=== PATIENT | female | born 1945 | race African-American/Black ===

== ENCOUNTER 2016-04-20 09:36 | Outpatient (CLI) | payer MEDICARE, OTHER ==
[2016-04-20 12:33] LABS: Hemoglobin A1c 5.8 % (4.0-6.0)
== END 2016-04-20 09:37 | disposition home or self-care (01) ==
LOC: NAVSJIPCSP 09:36
PROVIDERS: ATTEND Internal Medicine
DX: E78.5 Hyperlipidemia, unspecified (principal); E11.9 Type 2 diabetes mellitus without complications; Z79.899 Other long term (current) drug therapy
CPT/HCPCS: 36415; 80061; 83036

== ENCOUNTER 2016-07-20 09:05 | Outpatient (CLI) | payer MEDICARE, OTHER ==
[2016-07-20 12:38] LABS: Hemoglobin A1c 5.8 % (4.0-6.0)
[2016-07-20 12:45] LABS: Cardiac Risk 2.2 (Less than 4.5)
[2016-07-20 17:33] LABS: Hep C IgG Ab Non-Reactive (NonReactive); Hep C Index 0.09 S/CO (0-0.79)
== END 2016-07-20 09:06 | disposition home or self-care (01) ==
LOC: NAVSJIPCSP 09:05
PROVIDERS: ATTEND Internal Medicine
DX: E11.9 Type 2 diabetes mellitus without complications (principal); Z72.89 Other problems related to lifestyle; Z79.899 Other long term (current) drug therapy
CPT/HCPCS: 36415; 80061; 83036; 86803

== ENCOUNTER 2016-08-08 14:36 | Outpatient (CLI) | payer MEDICARE, OTHER ==
--- NOTE | 2016-08-08 17:48 | RAD ---
TWO VIEWS LEFT HIP 08/08/2016 HISTORY: Left hip pain radiating down the left leg for 2 weeks. FINDINGS: There is minimal left hip osteoarthritis. No fracture or dislocation is seen. There are prominent calcifications overlying the pelvis which could be related to calcified uterine fibroids, but this c annot be further evaluated on this exam. IMPRESSION: 1. Large area of calcifications overlying the pelvis of which the exact etiology is uncertain, but t his may be related to calcified uterine fibroids. However, confirmation with CT scan examination ma y be helpful. 2. Mild left hip osteoarthritis. POS: MARQUES
== END 2016-08-08 14:37 | disposition home or self-care (01) ==
LOC: NAV RAD 14:36
PROVIDERS: ATTEND Internal Medicine
DX: M25.552 Pain in left hip (principal); M16.12 Unilateral primary osteoarthritis, left hip

== ENCOUNTER 2016-10-31 09:48 | Outpatient (CLI) | payer MEDICARE, OTHER ==
[2016-10-31 12:51] LABS: #Basophils 0.1 thou/uL (0.0-0.2); #Eosinphils 0.4 thou/uL (0.0-0.7); #Lymphocytes 2.1 thou/uL (1.20-3.40); #Monocytes 0.5 thou/uL (0.11-0.59); #Neutrophils 3.4 thou/uL (1.40-6.50); %Basophils 0.9 % (0.0-1.0); %Eosinophils 5.9 % (0.0-10.0); %Lymphocytes 32.2 % (21.0-51.0); %Monocytes 7.1 % (0.0-10.0); %Neutrophils 53.9 % (42.0-75.0); Hemoglobin 11.8 g/dL (12.0-16.0); Mean Corpuscular HGB CONC 31.9 g/dL (32.0-36.0); Mean Corpuscular Hemoglobin 28.7 pg (27.0-31.0); Mean Corpuscular Volume 90.2 fl (81.0-99.0); Mean Platelet Volume 7.2 fL (7.4-10.4); Platelet Count 298 thou/uL (130-400); RBC Distribution Width 12.5 % (11.5-14.5); Red Blood Cell (RBC) Count 4.11 mill/uL (4.20-5.40); White Blood Cell (WBC) Count 6.4 thou/uL (4.8-10.8)
[2016-10-31 13:23] LABS: ALT (SGPT) 10 U/L (8-55); AST (SGOT) 15 U/L (5-34); Albumin 3.8 g/dL (3.4-4.8); Alkaline Phosphatase 105 U/L (40-150); Anion Gap 16 mmol/L (10-20); BUN (Urea Nitrogen) 18 mg/dL (9.8-20.1); Bilirubin, Total 0.4 mg/dL (0.2-1.2); Calc. Creatinine Clearance 0 mL/min (70-130); Calcium 10.1 mg/dL (7.8-10.44); Carbon Dioxide 26 mmol/L (23-31); Cardiac Risk 2.3 (Less than 4.5); Chloride 103 mmol/L (98-107); Cholesterol 146 mg/dl (< 200 Desired); Estimated GFR-MDRD 54; Globulin 2.9 g/dL (2.4-3.5); Glucose 101 mg/dL (83-110); HDL Cholesterol 64 mg/dL (>60 Neg Risk); LDL Cholesterol, Calculated 72 mg/dL; Protein, Total 6.7 g/dL (6.0-8.3); Sodium 141 mmol/L (136-145); Triglycerides 50 mg/dL (Less than 150)
[2016-10-31 13:25] LABS: Bilirubin Negative (Negative); Blood, Urine Negative (Negative); Clarity Slightly Cloudy (Clear); Glucose, Urine (Dipstick) Negative (Negative); Hemoglobin A1c 6.2 % (4.0-6.0); Leukocyte Large (Negative); Nitrite Negative (Negative); Protein, Urine (Dipstick) Negative (Neg-Trace); Urobilinogen 0.2 mg/dL (0.2-1.0); pH, Urine 5.5 (5.0-9.0)
[2016-10-31 13:36] LABS: RBC/HPF 0-3 HPF (0-3); WBC/HPF 21-50 HPF (0-3)
[2016-10-31 13:37] LABS: Bacteria/HPF 2+ HPF (None Seen); Squamous Epithelial 0-3 HPF (0-3)
[2016-10-31 18:26] LABS: Creatinine, Urine 82.11 mg/dL (47-110); Microalbumin Urine 1.1 mg/dL (0.5-50.0); Microalbumin/Creat Ratio 13.4 mg/g (Less than 30)
== END 2016-10-31 09:49 | disposition home or self-care (01) ==
LOC: NAVSJIPCSP 09:48
PROVIDERS: ATTEND Internal Medicine
DX: E11.9 Type 2 diabetes mellitus without complications (principal); E78.5 Hyperlipidemia, unspecified; I11.9 Hypertensive heart disease without heart failure; R30.0 Dysuria; Z79.899 Other long term (current) drug therapy
CPT/HCPCS: 36415; 80053; 80061; 81003; 81015; 82043; 83036; 85025; 87077; 87086; 87186

== ENCOUNTER 2017-08-16 10:08 | Outpatient (CLI) | payer MEDICARE, OTHER ==
--- NOTE | 2017-08-16 11:32 | RAD ---
LEFT KNEE 4 VIEWS: HISTORY: Left knee pain. FINDINGS: There are degenerative changes in the left knee manifested by osteophyte formation and joint space na rrowing. No fracture, dislocation, or bony destruction is identified. IMPRESSION: Left knee osteoarthritis. POS: MARQUES
== END 2017-08-16 10:09 | disposition home or self-care (01) ==
LOC: NAV RAD 10:08
PROVIDERS: ATTEND Internal Medicine
DX: M17.12 Unilateral primary osteoarthritis, left knee (principal)

== ENCOUNTER 2018-04-19 13:25 | Inpatient (IN) | payer MEDICARE, OTHER ==
[2018-04-19 13:32] VITALS: BMI 32.3
[2018-04-19] MEDS: cloNIDine 0.2 MG TAB PO SCH ×2 (14:49→21:27)
[2018-04-19] MEDS: traMADol HCl 50 MG TAB PO PRN (14:49)
[2018-04-19] MEDS: Carvedilol 6.25 MG TAB PO SCH (21:27)
[2018-04-19] MEDS: Atorvastatin Calcium 10 MG TAB PO SCH (21:28)
[2018-04-19] MEDS: Amlodipine 10 MG TAB PO SCH (21:28)
[2018-04-20] MEDS: traMADol HCl 50 MG TAB PO PRN ×3 (04:56→20:35)
[2018-04-20 05:33] LABS: #Basophils 0.2 thou/uL (0.0-0.2); #Eosinphils 0.5 thou/uL (0.0-0.7); #Lymphocytes 1.6 thou/uL (1.20-3.40); #Monocytes 1.1 thou/uL (0.11-0.59); #Neutrophils 6.4 thou/uL (1.40-6.50); %Basophils 1.6 % (0.0-1.0); %Eosinophils 4.9 % (0.0-10.0); %Lymphocytes 16.1 % (21.0-51.0); %Monocytes 11.2 % (0.0-10.0); %Neutrophils 66.3 % (42.0-75.0); Hemoglobin 9.3 g/dL (12.0-16.0); Mean Corpuscular HGB CONC 32.5 g/dL (32.0-36.0); Mean Corpuscular Hemoglobin 29.4 pg (27.0-31.0); Mean Corpuscular Volume 90.5 fL (78.0-98.0); Mean Platelet Volume 7.1 fL (7.4-10.4); Platelet Count 314 thou/uL (130-400); RBC Distribution Width 13.1 % (11.5-14.5); Red Blood Cell (RBC) Count 3.16 mill/uL (4.20-5.40); White Blood Cell (WBC) Count 9.7 thou/uL (4.8-10.8)
[2018-04-20 05:42] LABS: Anion Gap 11 mmol/L (10-20); BUN (Urea Nitrogen) 13 mg/dL (9.8-20.1); Calc. Creatinine Clearance 78 mL/min (70-130); Calcium 9.8 mg/dL (7.8-10.44); Carbon Dioxide 26 mmol/L (23-31); Chloride 105 mmol/L (98-107); Estimated GFR-MDRD 72; Glucose 121 mg/dL (83-110); Potassium 3.7 mmol/L (3.5-5.1); Sodium 138 mmol/L (136-145)
[2018-04-20] MEDS ORDERED: Aspirin 81 mg Enteric Coated Tablet PO SCH (09:00)
[2018-04-20] MEDS: Loratadine 10 MG TAB PO SCH (09:37)
[2018-04-20] MEDS: metFORMIN 500 MG TAB PO SCH (09:37)
[2018-04-20] MEDS: cloNIDine 0.2 MG TAB PO SCH ×3 (09:37→20:34)
[2018-04-20] MEDS: hydrALAZINE 25 MG TAB PO SCH (09:37)
[2018-04-20] MEDS: Hydrochlorothiazide 25 MG TAB PO SCH (09:37)
[2018-04-20] MEDS: Carvedilol 6.25 MG TAB PO SCH ×2 (09:37→20:34)
--- NOTE | 2018-04-20 17:02 | HP ---
CHIEF COMPLAINT: Status post left total knee replacement for therapy. BRIEF HISTORY: This is a very pleasant 72-year-old overweight female who underwent elective left total knee replacement. She was seen by hospitalist for medical management. She has improved sufficiently that they felt her to be a candidate for inpatient rehabilitation and transferred her here. The patient is resting comfortably in bed and denies any concerns. Her family is in the room. She denies any fever or chills. She states that the pain medicines are helping. No other complaints. PAST MEDICAL HISTORY: 1. Diabetes mellitus, type 2. 2. Hypertension. 3. Dyslipidemia. 4. Chronic kidney disease, stage 3. 5. Obesity with a BMI of 31.8. 6. She also has history of chronic back pain and degenerative joint disease. PAST SURGICAL HISTORY: 1. She has had epidural steroid injections in the past. 2. Bilateral tubal ligations. 3. Recent left total knee replacement. FAMILY HISTORY: Positive for hypertension in her father and mother. One sister of coronary artery disease and [place]. PSYCHOSOCIAL HISTORY: Denies any tobacco, alcohol, or recreational drug use. Fairly active and independent. ALLERGIES: TO TYLENOL NO. 3. MEDICATIONS: She has been transferred here on the following medications: 1. Amlodipine 10 mg p.o. at bedtime. 2. Ecotrin 81 mg p.o. b.i.d. 3. Lipitor 10 mg daily. 4. Lotensin 40 mg daily. 5. Carvedilol 6.25 mg b.i.d. 6. Clonidine 0.2 mg t.i.d. 7. Hydralazine 25 mg daily. 8. Hydrochlorothiazide 25 mg daily. 9. Claritin 10 mg daily. 10. Metformin 500 mg daily. 11. Tramadol 50 mg q.6 p.r.n. REVIEW OF SYSTEMS: CARDIOVASCULAR SYSTEMS: Denies any chest pain, shortness of breath, palpitations, PND, orthopnea, or pedal edema. RESPIRATORY SYSTEM: Denies any chronic cough, expectoration, or pleuritic type chest pain. GASTROINTESTINAL SYSTEM: Denies any nausea, vomiting, diarrhea, constipation, hematemesis, melena, or hematochezia. GENITOURINARY SYSTEM: Denies any frequency, urgency, dysuria, or hematuria. CENTRAL NERVOUS SYSTEM: Denies any focal numbness, weakness, or fainting spells. HEENT: Denies any difficulty with vision, speech, hearing, or swallowing. PHYSICAL EXAMINATION: GENERAL: Very pleasant 72-year-old female who is resting comfortably in bed, in no apparent distress. She responds appropriate to questions. She is alert, awake, and oriented x3. VITAL SIGNS: She is afebrile, heart rate 91, respirations 16, oxygen saturation 99% on room air, and blood pressure was 165/80 this morning. This is prior to her blood pressure medications. HEENT: Normocephalic, atraumatic. Pupils equal, reactive to light and accommodation. No JVD, thyromegaly, cervical lymphadenopathy carotid bruits CARDIOVASCULAR SYSTEM: S1 and S2 plus. Rate and rhythm regular. RESPIRATORY SYSTEM: Normal vesicular breath sounds heard on all lung chacko. ABDOMEN: Soft, obese, nontender. Bowel sounds heard in all quadrants. EXTREMITIES: Without cyanosis or clubbing. Trace edema, left leg. Left knee incision with dressing. Localized area of superficial erythema away from the incision in her medial aspect of her left leg. No warmth or tenderness. CENTRAL NERVOUS SYSTEM: Alert, awake, and oriented x3. Cranial nerves 2 through 12 grossly intact. Motor system examination is grossly nonfocal except for weakness in the left leg probably due to the need for surgery. LABORATORY VALUES: White count is 9.7, H and H are 9.3 and 28.6; these were 11.8 and 36.8 prior to surgery. Sodium 138, potassium 3.7, and BUN and creatinine 13 and 0.92. Blood sugars are 121, 130, 107, 121, and 125. IMPRESSION: 1. Degenerative joint disease, status post left total knee replacement. 2. Obesity with BMI of 31.8. 3. Diabetes mellitus, type 2, well controlled. 4. Hypertension, not well controlled. 5. Dyslipidemia. 6. Allergic rhinitis. 7. History of lumbar spinal stenosis, requiring epidural steroid injections. PLAN: 1. Continue current medications. 2. Change aspirin to b.i.d. as per my discussion with the PA for Orthopedic Surgery. 3. 1800-calorie heart healthy ADA diet. 4. Accu-Cheks with sliding scale coverage. 5. Monitor blood pressure and adjust medications as needed. 6. Incision care. 7. Orthopedic precautions. 8. Watch for any signs of infection. 9. Ice pack to left knee. 10. PT and OT eval and treat. 11. Routine laboratory values. 12. Discussed with the patient and family in detail and all questions answered. Job ID: [id number]
[2018-04-20] MEDS: Aspirin 81 mg Enteric Coated Tablet PO SCH (20:33)
[2018-04-20] MEDS: Atorvastatin Calcium 10 MG TAB PO SCH (20:33)
[2018-04-20] MEDS: Amlodipine 10 MG TAB PO SCH (20:33)
[2018-04-21] MEDS: traMADol HCl 50 MG TAB PO PRN ×3 (04:27→20:36)
[2018-04-21] MEDS: metFORMIN 500 MG TAB PO SCH (09:05)
[2018-04-21] MEDS: cloNIDine 0.2 MG TAB PO SCH ×3 (09:08→20:33)
[2018-04-21] MEDS: Carvedilol 6.25 MG TAB PO SCH ×2 (09:08→20:33)
[2018-04-21] MEDS: Hydrochlorothiazide 25 MG TAB PO SCH (09:08)
[2018-04-21] MEDS: Loratadine 10 MG TAB PO SCH (09:08)
[2018-04-21] MEDS: hydrALAZINE 25 MG TAB PO SCH (09:08)
[2018-04-21] MEDS: Aspirin 81 mg Enteric Coated Tablet PO SCH ×2 (10:03→20:33)
--- NOTE | 2018-04-21 15:30 | PRG ---
DATE OF SERVICE: 04/21/2018 SUBJECTIVE: Ms. Lee is resting comfortably. Denies any complaints. Tolerating therapy. Medications are helping with her pain. Denies any chest pain, shortness of breath, lightheadedness, or dizziness. OBJECTIVE: VITAL SIGNS: She is afebrile. Heart rate 89, respirations 20, oxygen saturation 93%, and blood pressure 148/68. CARDIOVASCULAR: S1 and S2 plus. RESPIRATORY: Normal vesicular breath sounds. ABDOMEN: Soft, obese, nontender. Bowel sounds in all quadrants. EXTREMITIES: Without cyanosis or clubbing. Trace edema, left leg. Left knee incision with dressing. Superficial erythema noted yesterday has resolved. CENTRAL NERVOUS SYSTEM: Awake and oriented x3. Cranial nerves 2 through 12 intact. Generalized weakness. LABORATORY DATA: Blood sugars are 141, 205, 127 and 116. IMPRESSION: 1. Left total knee replacement. 2. Diabetes mellitus type 2. 3. Hypertension, well controlled. 4. Dyslipidemia. 5. Degenerative joint disease. 6. Obesity. 7. Chronic low back pain. PLAN: 1. Continue current medications. 2. Heart healthy diet. 3. Monitor blood pressure and adjust medications as needed. 4. Incision care. 5. Orthopedic precautions. 6. DVT and stress ulcer prophylaxis. 7. Decubitus precautions. 8. Routine laboratory values. 9. Continue physical therapy. 10. Discussed with the patient in detail and all questions answered. Job ID: [id number]
[2018-04-21] MEDS: Amlodipine 10 MG TAB PO SCH (20:32)
[2018-04-21] MEDS: Atorvastatin Calcium 10 MG TAB PO SCH (20:33)
[2018-04-22] MEDS: traMADol HCl 50 MG TAB PO PRN ×2 (08:26→19:45)
[2018-04-22] MEDS: cloNIDine 0.2 MG TAB PO SCH ×3 (08:27→19:45)
[2018-04-22] MEDS: Loratadine 10 MG TAB PO SCH (08:28)
[2018-04-22] MEDS: Carvedilol 6.25 MG TAB PO SCH ×2 (08:28→19:44)
[2018-04-22] MEDS: metFORMIN 500 MG TAB PO SCH (08:28)
[2018-04-22] MEDS: Aspirin 81 mg Enteric Coated Tablet PO SCH ×2 (08:28→19:45)
[2018-04-22] MEDS: Hydrochlorothiazide 25 MG TAB PO SCH (08:28)
[2018-04-22] MEDS: hydrALAZINE 25 MG TAB PO SCH (08:28)
--- NOTE | 2018-04-22 13:16 | PRG ---
DATE OF SERVICE: 04/22/2018 SUBJECTIVE: Ms. Lee is up in the wheelchair and eating lunch. Her family is with her. She apparently had a good session of therapy this morning. She denies any fever or chills. She does notice some pain in her surgical site. OBJECTIVE: VITAL SIGNS: She is afebrile, heart rate 86, respirations 18, oxygen saturation is 96% on room air, and blood pressure is 144/79. CARDIOVASCULAR SYSTEM: S1 and S2 plus. RESPIRATORY SYSTEM: Normal vesicular breath sounds. ABDOMEN: Soft, obese, nontender. Bowel sounds in all quadrants. EXTREMITIES: Without cyanosis or clubbing. Trace edema, left leg. Left knee incision looks great. No neurovascular compromise. CENTRAL NERVOUS SYSTEM: A, A, and O x3. Cranial nerves 2 through 12 intact. Generalized weakness. LABORATORY DATA: Blood sugars are 127, 116, 118, 152, 118, and 115. IMPRESSION: 1. Diabetes mellitus, type 2, well controlled. 2. Hypertension, well controlled. 3. Dyslipidemia. 4. Degenerative joint disease, status post left total knee replacement. 5. Chronic back pain due to spinal stenosis. PLAN: 1. Continue current medications. 2. 1800-calorie heart healthy ADA diet. 3. Accu-Cheks with sliding scale coverage. 4. Monitor blood pressure and adjust medications as needed. 5. Incision care. 6. Orthopedic precautions. 7. Routine laboratory values. 8. DVT and stress ulcer prophylaxis. 9. Discussed with the patient and family in detail and all questions answered. Job ID: [id number]
[2018-04-22] MEDS: Amlodipine 10 MG TAB PO SCH (19:44)
[2018-04-22] MEDS: Atorvastatin Calcium 10 MG TAB PO SCH (19:46)
[2018-04-23] MEDS: traMADol HCl 50 MG TAB PO PRN ×2 (06:11→13:53)
[2018-04-23] MEDS: Loratadine 10 MG TAB PO SCH (09:20)
[2018-04-23] MEDS: Aspirin 81 mg Enteric Coated Tablet PO SCH ×2 (09:21→21:23)
[2018-04-23] MEDS: hydrALAZINE 25 MG TAB PO SCH (09:21)
[2018-04-23] MEDS: cloNIDine 0.2 MG TAB PO SCH ×3 (09:21→21:24)
[2018-04-23] MEDS: Carvedilol 6.25 MG TAB PO SCH ×2 (09:21→16:39)
[2018-04-23] MEDS: Hydrochlorothiazide 25 MG TAB PO SCH (09:21)
[2018-04-23] MEDS: metFORMIN 500 MG TAB PO SCH (09:21)
[2018-04-23] MEDS: HYDROcodone/Acetaminophen 5/325 mg Tablet PO PRN (21:21)
[2018-04-23] MEDS: Amlodipine 10 MG TAB PO SCH (21:23)
[2018-04-23] MEDS: Atorvastatin Calcium 10 MG TAB PO SCH (21:24)
[2018-04-24] MEDS: metFORMIN 500 MG TAB PO SCH (08:47)
[2018-04-24] MEDS: HYDROcodone/Acetaminophen 5/325 mg Tablet PO PRN ×3 (08:47→21:05)
[2018-04-24] MEDS: cloNIDine 0.2 MG TAB PO SCH ×3 (08:47→20:51)
[2018-04-24] MEDS: Carvedilol 6.25 MG TAB PO SCH ×2 (08:47→16:30)
[2018-04-24] MEDS: Aspirin 81 mg Enteric Coated Tablet PO SCH ×2 (08:47→20:50)
[2018-04-24] MEDS: hydrALAZINE 25 MG TAB PO SCH (08:47)
[2018-04-24] MEDS: Hydrochlorothiazide 25 MG TAB PO SCH (08:47)
[2018-04-24] MEDS: Loratadine 10 MG TAB PO SCH (08:48)
--- NOTE | 2018-04-24 12:19 | PRG ---
DATE OF SERVICE: 04/24/2018 SUBJECTIVE: Ms. Lee is doing well. She did require increase in her pain medicine to [place] from the tramadol and that really seems to be helping. She is tolerating her therapy. Her leg swelling is much improved. No redness. The patient's niece in the room. No concerns or questions. OBJECTIVE: VITAL SIGNS: She is afebrile. Heart rate 88, respirations 18, oxygen saturation 100% on room air, blood pressure 129/62. CARDIOVASCULAR SYSTEM: S1-S2 plus. RESPIRATORY SYSTEM: Normal vesicular breath sounds heard in all lung chacko. ABDOMEN: Soft, obese, nontender. Bowel sounds heard in all quadrants. EXTREMITIES: Without cyanosis or clubbing. Left knee incision is healthy. Improved edema. CENTRAL NERVOUS SYSTEM: Alert, awake, and oriented x3. Cranial nerves 2 through 12 intact. LABORATORY DATA: Blood sugars are 112, 166, 133, 140, 123. IMPRESSION: 1. Diabetes mellitus type 2, well controlled. 2. Hypertension. 3. Dyslipidemia. 4. Degenerative joint disease, status post left total knee replacement. 5. Lumbar spinal stenosis. 6. Obesity. 7. Improving deconditioning. PLAN: 1. Continue current medications. 2. 1800-calorie heart healthy ADA diet. 3. Accu-Cheks with sliding scale coverage. 4. DVT and stress ulcer prophylaxis. 5. Decubitus precautions. 6. Routine laboratory values. 7. Monitor blood pressure and adjust medications as needed. 8. Incision care. 9. Orthopedic precautions. 10. Continue physical therapy. 11. Discussed with the patient, niece, and nursing in detail and all questions answered. Job ID: [id number]
[2018-04-24] MEDS: Amlodipine 10 MG TAB PO SCH (20:50)
[2018-04-24] MEDS: Atorvastatin Calcium 10 MG TAB PO SCH (20:51)
[2018-04-25] MEDS: cloNIDine 0.2 MG TAB PO SCH ×3 (08:38→21:20)
[2018-04-25] MEDS: HYDROcodone/Acetaminophen 5/325 mg Tablet PO PRN ×2 (08:38→15:18)
[2018-04-25] MEDS: metFORMIN 500 MG TAB PO SCH (08:38)
[2018-04-25] MEDS: hydrALAZINE 25 MG TAB PO SCH (08:38)
[2018-04-25] MEDS: Hydrochlorothiazide 25 MG TAB PO SCH (08:38)
[2018-04-25] MEDS: Aspirin 81 mg Enteric Coated Tablet PO SCH ×2 (08:38→21:19)
[2018-04-25] MEDS: Carvedilol 6.25 MG TAB PO SCH ×2 (08:38→17:04)
[2018-04-25] MEDS: Loratadine 10 MG TAB PO SCH (08:38)
--- NOTE | 2018-04-25 10:16 | PRG ---
DATE OF SERVICE: SUBJECTIVE: Ms. Lee is up in her wheelchair. She denies any complaints. Pain medications are helping. Her family is in the room. No concerns or questions discussed with nursing. OBJECTIVE: VITAL SIGNS: She is afebrile. Heart rate 89, respirations 20, oxygen saturation 94% on room air, and blood pressure 132/60. CARDIOVASCULAR: S1 and S2 plus. RESPIRATORY: Normal vesicular breath sounds. ABDOMEN: Soft and nontender. Bowel sounds heard in all quadrants. EXTREMITIES: Without cyanosis or clubbing. Trace edema in left leg. Left knee incision is healthy. LABORATORY DATA: Blood sugars are 136, 124, 175, and 134. IMPRESSION: 1. Diabetes mellitus type 2, well controlled. 2. Hypertension, well controlled. 3. Dyslipidemia. 4. Degenerative joint disease, status post left total knee replacement. 5. Lumbar spinal stenosis. 6. Obesity. 7. Improving deconditioning. PLAN: 1. Continue current medications. 2. 1800-calorie heart healthy ADA diet. 3. Accu-Cheks with sliding scale coverage. 4. DVT and stress ulcer prophylaxis. 5. Decubitus precautions. 6. Routine laboratory values. 7. Physical therapy. 8. Discussed with the patient and nursing in detail. All questions answered. 9. Incision care and orthopedic precautions. Job ID: [id number]
[2018-04-25] MEDS: Amlodipine 10 MG TAB PO SCH (21:19)
[2018-04-25] MEDS: Atorvastatin Calcium 10 MG TAB PO SCH (21:19)
[2018-04-26] MEDS: Carvedilol 6.25 MG TAB PO SCH ×2 (08:04→16:36)
[2018-04-26] MEDS: metFORMIN 500 MG TAB PO SCH (08:04)
[2018-04-26] MEDS: cloNIDine 0.2 MG TAB PO SCH ×3 (08:04→20:37)
[2018-04-26] MEDS: hydrALAZINE 25 MG TAB PO SCH (08:04)
[2018-04-26] MEDS: Aspirin 81 mg Enteric Coated Tablet PO SCH ×2 (08:04→20:37)
[2018-04-26] MEDS: Hydrochlorothiazide 25 MG TAB PO SCH (08:05)
[2018-04-26] MEDS: Loratadine 10 MG TAB PO SCH (08:05)
[2018-04-26] MEDS: HYDROcodone/Acetaminophen 5/325 mg Tablet PO PRN ×2 (08:37→16:36)
[2018-04-26] MEDS: traMADol HCl 50 MG TAB PO PRN (14:33)
[2018-04-26] MEDS: Atorvastatin Calcium 10 MG TAB PO SCH (20:37)
[2018-04-26] MEDS: Docusate 100 MG CAP PO SCH (20:37)
[2018-04-26] MEDS: Amlodipine 10 MG TAB PO SCH (20:38)
[2018-04-27] MEDS: HYDROcodone/Acetaminophen 5/325 mg Tablet PO PRN ×3 (09:10→21:29)
[2018-04-27] MEDS: metFORMIN 500 MG TAB PO SCH (09:11)
[2018-04-27] MEDS: Docusate 100 MG CAP PO SCH ×2 (09:11→21:28)
[2018-04-27] MEDS: Loratadine 10 MG TAB PO SCH (09:11)
[2018-04-27] MEDS: hydrALAZINE 25 MG TAB PO SCH (09:11)
[2018-04-27] MEDS: Carvedilol 6.25 MG TAB PO SCH ×2 (09:11→17:48)
[2018-04-27] MEDS: Hydrochlorothiazide 25 MG TAB PO SCH (09:11)
[2018-04-27] MEDS: cloNIDine 0.2 MG TAB PO SCH ×3 (09:11→21:29)
[2018-04-27] MEDS: Aspirin 81 mg Enteric Coated Tablet PO SCH ×2 (09:12→21:28)
[2018-04-27] MEDS: traMADol HCl 50 MG TAB PO PRN (13:46)
--- NOTE | 2018-04-27 19:19 | PRG ---
DATE OF SERVICE: 04/26/2018 SUBJECTIVE: The patient feels well. No complaints except for soreness in her knee, but is cooperating with therapy. OBJECTIVE: VITAL SIGNS: Show temperature is 98.8, pulse 89, respirations 20, O2 sats 96% on room air, and blood pressure 120/58. LUNGS: Clear. CARDIAC: Regular rhythm. EXTREMITIES: Left knee shows healing incision with some swelling with no erythema or warmth. ASSESSMENT: 1. Resolving left total knee replacement. 2. Stable diabetes, controlled to goal. 3. Hypertension, controlled to goal. PLAN: Continue PT and OT. Continue Accu-Cheks to monitor and titrate and control diabetes. Continue DVT and stress ulcer prophylaxis. Job ID: [id number]
--- NOTE | 2018-04-27 19:25 | PRG ---
DATE OF SERVICE: 04/27/2018 SUBJECTIVE: The patient feels well and is sitting up in chair, watching TV. Did not have therapy today, but feels well with no complaints of pain or stiffness in her knee. OBJECTIVE: VITAL SIGNS: Show temperature 99.2, pulse 85, respirations 20, O2 sats 95% on room air, and blood pressure 141/64. Accu-Cheks ranged from 127 to 114. EXTREMITIES: Left knee is swollen, but not tender. No erythema or warmth. ASSESSMENT: 1. Resolving left total knee replacement. 2. Type 2 diabetes, controlled to goal. 3. Hypertension, controlled to goal. PLAN: Continue PT and OT. Continue pain relief as needed. Continue Accu-Cheks to monitor and titrate and control diabetes. Continue DVT and stress ulcer prophylaxis. Job ID: [id number]
[2018-04-27] MEDS: Atorvastatin Calcium 10 MG TAB PO SCH (21:28)
[2018-04-27] MEDS: Amlodipine 10 MG TAB PO SCH (21:28)
[2018-04-28] MEDS: Aspirin 81 mg Enteric Coated Tablet PO SCH ×2 (08:48→20:49)
[2018-04-28] MEDS: traMADol HCl 50 MG TAB PO PRN ×2 (08:48→17:45)
[2018-04-28] MEDS: hydrALAZINE 25 MG TAB PO SCH (08:48)
[2018-04-28] MEDS: metFORMIN 500 MG TAB PO SCH (08:50)
[2018-04-28] MEDS: Carvedilol 6.25 MG TAB PO SCH ×2 (08:50→17:45)
[2018-04-28] MEDS: Docusate 100 MG CAP PO SCH ×2 (08:50→20:49)
[2018-04-28] MEDS: Hydrochlorothiazide 25 MG TAB PO SCH (08:52)
[2018-04-28] MEDS: Loratadine 10 MG TAB PO SCH (08:52)
[2018-04-28] MEDS: cloNIDine 0.2 MG TAB PO SCH ×3 (08:52→20:49)
--- NOTE | 2018-04-28 09:16 | PRG ---
DATE OF SERVICE: 04/28/2018 SUBJECTIVE: The patient feels well. No complaints except for some mild constipation. Lying in bed, waiting for breakfast. OBJECTIVE: VITAL SIGNS: Blood pressure is 110/66, pulse 89, temperature 98.2, O2 sats 96% on room air. LUNGS: Clear. CARDIAC: Regular rhythm. ABDOMEN: Soft, nontender. SKIN/EXTREMITIES: Display healing left total knee with persistent swelling, but no erythema, warmth, and increasing range of motion. ASSESSMENT: 1. Resolving left total knee replacement. 2. Mild constipation. 3. Stable type 2 diabetes. 4. Hypertension, controlled to goal. PLAN: 1. Continue Accu-Cheks to monitor diabetic control. 2. Continue Colace 100 twice daily for constipation. 3. Continue PT/OT. 4. Continue pain relief as needed. 5. Continue DVT and stress ulcer prophylaxis. Job ID: [id number]
[2018-04-28] MEDS: Atorvastatin Calcium 10 MG TAB PO SCH (20:49)
[2018-04-28] MEDS: Amlodipine 10 MG TAB PO SCH (20:50)
[2018-04-29] MEDS: Docusate 100 MG CAP PO SCH ×2 (09:42→20:23)
[2018-04-29] MEDS: traMADol HCl 50 MG TAB PO PRN (09:42)
[2018-04-29] MEDS: cloNIDine 0.2 MG TAB PO SCH ×3 (09:42→20:23)
[2018-04-29] MEDS: Hydrochlorothiazide 25 MG TAB PO SCH (09:42)
[2018-04-29] MEDS: Loratadine 10 MG TAB PO SCH (09:42)
[2018-04-29] MEDS: hydrALAZINE 25 MG TAB PO SCH (09:42)
[2018-04-29] MEDS: Aspirin 81 mg Enteric Coated Tablet PO SCH ×2 (09:42→20:22)
[2018-04-29] MEDS: Carvedilol 6.25 MG TAB PO SCH ×2 (09:42→16:03)
[2018-04-29] MEDS: metFORMIN 500 MG TAB PO SCH (09:43)
--- NOTE | 2018-04-29 13:59 | PRG ---
DATE OF SERVICE: 04/29/2018 SUBJECTIVE: Ms. Lee is doing well. Denies any complaints, resting comfortably, tolerating her therapy. Pain is well controlled. OBJECTIVE: VITAL SIGNS: She is afebrile, heart rate 80, respirations 18, oxygen saturation 100% on room air, blood pressure 127/60. CARDIOVASCULAR: S1 and S2 plus. RESPIRATORY: Normal vesicular breath sounds. ABDOMEN: Soft, obese, nontender. Bowel sounds heard in all quadrants. EXTREMITIES: Without cyanosis or clubbing. Left knee incision is healthy. CENTRAL NERVOUS SYSTEM: Alert, awake, and oriented x3. Cranial nerves 2 through 12 intact. LABORATORY DATA: Blood sugars are 115, 151, 115, and 152. IMPRESSION: 1. Status post left total knee replacement for osteoarthritis. 2. Diabetes mellitus type 2. 3. Hypertension. 4. Dyslipidemia. 5. Chronic low back pain. PLAN: 1. Continue current medications. 2. 1800-calorie heart healthy ADA diet. 3. DVT and stress ulcer prophylaxis. 4. Decubitus precautions. 5. Incision care. 6. Orthopedic precautions. 7. Accu-Cheks with sliding scale coverage. 8. Continue therapy. 9. Routine laboratory values. Job ID: [id number]
[2018-04-29] MEDS: Amlodipine 10 MG TAB PO SCH (20:21)
[2018-04-29] MEDS: Atorvastatin Calcium 10 MG TAB PO SCH (20:23)
[2018-04-30] MEDS: Carvedilol 6.25 MG TAB PO SCH ×2 (09:36→17:01)
[2018-04-30] MEDS: Loratadine 10 MG TAB PO SCH (09:36)
[2018-04-30] MEDS: Hydrochlorothiazide 25 MG TAB PO SCH (09:36)
[2018-04-30] MEDS: cloNIDine 0.2 MG TAB PO SCH ×3 (09:36→20:16)
[2018-04-30] MEDS: Docusate 100 MG CAP PO SCH ×2 (09:36→20:16)
[2018-04-30] MEDS: hydrALAZINE 25 MG TAB PO SCH (09:36)
[2018-04-30] MEDS: Aspirin 81 mg Enteric Coated Tablet PO SCH ×2 (09:36→20:17)
[2018-04-30] MEDS: metFORMIN 500 MG TAB PO SCH (09:37)
[2018-04-30] MEDS: Amlodipine 10 MG TAB PO SCH (20:15)
[2018-04-30] MEDS: Atorvastatin Calcium 10 MG TAB PO SCH (20:17)
[2018-05-01] MEDS: Carvedilol 6.25 MG TAB PO SCH ×2 (08:32→16:19)
[2018-05-01] MEDS: metFORMIN 500 MG TAB PO SCH (08:32)
[2018-05-01] MEDS: Aspirin 81 mg Enteric Coated Tablet PO SCH ×2 (08:32→20:35)
[2018-05-01] MEDS: Docusate 100 MG CAP PO SCH ×2 (08:33→20:36)
[2018-05-01] MEDS: Loratadine 10 MG TAB PO SCH (08:33)
[2018-05-01] MEDS: cloNIDine 0.2 MG TAB PO SCH ×3 (08:33→20:36)
[2018-05-01] MEDS: Hydrochlorothiazide 25 MG TAB PO SCH (08:33)
[2018-05-01] MEDS: hydrALAZINE 25 MG TAB PO SCH (08:33)
--- NOTE | 2018-05-01 14:23 | PRG ---
DATE OF SERVICE: 05/01/2018 SUBJECTIVE: Ms. Lee is doing well. Denies any complaints. Resting comfortably, tolerating her therapy, and is much improved. Discussed with Therapy and they anticipate that she will be ready to go home on Sunday. OBJECTIVE: VITAL SIGNS: She is afebrile. Heart rate is 80, respirations 20, oxygen saturation 96% on room air, blood pressure 131/51. CARDIOVASCULAR: S1, S2 plus. RESPIRATORY: Normal vesicular breath sounds. ABDOMEN: Soft, obese, nontender. Bowel sounds heard in all quadrants. EXTREMITIES: Without cyanosis, clubbing. Left knee incision is healthy. CENTRAL NERVOUS SYSTEM: A and O x3. Cranial nerves 2 through 12 grossly intact. Grossly nonfocal. LABORATORY DATA: Blood sugars are 155, 108, 175, 129, and 136. IMPRESSION: 1. Status post elective left total knee replacement. 2. Hypertension. 3. Diabetes mellitus type 2. 4. Dyslipidemia. 5. Obesity. 6. Chronic low back pain. PLAN: 1. Continue current medications. 2. 1800-calorie heart healthy ADA diet. 3. Accu-Cheks, sliding scale coverage. 4. Monitor blood pressure and adjust medications as needed. 5. Incision care. 6. Orthopedic precautions. 7. DVT and stress ulcer prophylaxis. 8. Decubitus precautions. 9. Routine laboratory values. 10. Discharge planning. Job ID: [id number]
[2018-05-01] MEDS: traMADol HCl 50 MG TAB PO PRN (15:09)
[2018-05-01] MEDS: Atorvastatin Calcium 10 MG TAB PO SCH (20:35)
[2018-05-01] MEDS: Amlodipine 10 MG TAB PO SCH (20:35)
[2018-05-02] MEDS: Carvedilol 6.25 MG TAB PO SCH ×2 (08:32→17:02)
[2018-05-02] MEDS: Hydrochlorothiazide 25 MG TAB PO SCH (08:33)
[2018-05-02] MEDS: hydrALAZINE 25 MG TAB PO SCH (08:33)
[2018-05-02] MEDS: Loratadine 10 MG TAB PO SCH (08:33)
[2018-05-02] MEDS: Aspirin 81 mg Enteric Coated Tablet PO SCH ×2 (08:33→20:41)
[2018-05-02] MEDS: metFORMIN 500 MG TAB PO SCH (08:33)
[2018-05-02] MEDS: Docusate 100 MG CAP PO SCH ×2 (08:33→20:41)
[2018-05-02] MEDS: HYDROcodone/Acetaminophen 5/325 mg Tablet PO PRN (08:33)
[2018-05-02] MEDS: cloNIDine 0.2 MG TAB PO SCH ×3 (08:33→20:41)
--- NOTE | 2018-05-02 13:42 | PRG ---
DATE OF SERVICE: 05/02/2018 SUBJECTIVE: Ms. Lee is doing well. Denies any complaints, resting comfortably, improved enough that therapy feels like she is ready to go home tomorrow. Discharge med list has been done. We will have her go home on tramadol instead of the hydrocodone and I will send the tramadol in for her from my office. Home Health with a walker to be arranged by Case Management. OBJECTIVE: VITAL SIGNS: She is afebrile. Heart rate is 77, respirations 20, oxygen saturation 94% on room air, and blood pressure 130/62. CARDIOVASCULAR SYSTEM: S1 and S2 plus. RESPIRATORY SYSTEM: Normal vesicular breath sounds. ABDOMEN: Soft, obese, and nontender. Bowel sounds heard in all quadrants. EXTREMITIES: Without cyanosis, clubbing. Trace edema, left leg. Left knee incision is healthy. NERVOUS SYSTEM: A and O x3. Cranial nerves 2 through 12 intact. LABORATORY DATA: Blood sugars are 132, 151, 114, and 139. IMPRESSION: 1. Osteoarthritis, status post elective left total knee replacement. 2. Hypertension. 3. Dyslipidemia. 4. Diabetes mellitus type 2. 5. Chronic low back pain. 6. Obesity. PLAN: 1. Continue current medications. 2. 1800-calorie heart healthy ADA diet. 3. Accu-Cheks with sliding scale coverage. 4. DVT and stress ulcer prophylaxis. 5. Decubitus precautions. 6. Routine laboratory values. 7. Incision care. 8. Anticipate discharging her home tomorrow with home health and a walker. All discharge medications were done. We will send in her prescription into her pharmacy for the tramadol. No family at bedside. Discussed with nurse. Job ID: [id number]
[2018-05-02] MEDS: traMADol HCl 50 MG TAB PO PRN (14:45)
[2018-05-02] MEDS: Amlodipine 10 MG TAB PO SCH (20:41)
[2018-05-02] MEDS: Atorvastatin Calcium 10 MG TAB PO SCH (20:41)
[2018-05-03 07:30] VITALS: TEMP 98.4
[2018-05-03] MEDS: cloNIDine 0.2 MG TAB PO SCH (09:27)
[2018-05-03] MEDS: Aspirin 81 mg Enteric Coated Tablet PO SCH (09:27)
[2018-05-03] MEDS: hydrALAZINE 25 MG TAB PO SCH (09:27)
[2018-05-03] MEDS: Loratadine 10 MG TAB PO SCH (09:27)
[2018-05-03] MEDS: Carvedilol 6.25 MG TAB PO SCH (09:28)
[2018-05-03] MEDS: Docusate 100 MG CAP PO SCH (09:28)
[2018-05-03] MEDS: Hydrochlorothiazide 25 MG TAB PO SCH (09:28)
[2018-05-03] MEDS: metFORMIN 500 MG TAB PO SCH (09:28)
[2018-05-03 09:29] VITALS: BP 147/65
== END 2018-05-03 13:15 | disposition home health service (06) | DRG 561 ==
LOC: NAV ACUTE 13:25
PROVIDERS: ADMIT Internal Medicine; ATTEND Internal Medicine
DX: Z47.1 Aftercare following joint replacement surgery (principal); E78.5 Hyperlipidemia, unspecified; N18.3 Chronic kidney disease, stage 3 (moderate); E66.9 Obesity, unspecified; G89.29 Other chronic pain; I12.9 Hypertensive chronic kidney disease with stage 1 through stage 4 chronic kidney disease, or unspecified chronic kidney disease; E11.22 Type 2 diabetes mellitus with diabetic chronic kidney disease; J30.9 Allergic rhinitis, unspecified; M48.061 Spinal stenosis, lumbar region without neurogenic claudication; R53.81 Other malaise; K59.00 Constipation, unspecified; Z96.652 Presence of left artificial knee joint; Z88.8 Allergy status to other drugs, medicaments and biological substances; Z79.84 Long term (current) use of oral hypoglycemic drugs; Z68.32 Body mass index [BMI] 32.0-32.9, adult; Z98.51 Tubal ligation status
CPT/HCPCS: 36416; 80048; 85025

== ENCOUNTER 2019-03-11 11:27 | Outpatient (CLI) | payer MEDICARE, OTHER ==
--- NOTE | 2019-03-11 12:06 | RAD ---
EXAM: 3 views of the left hand COMPARISON: None HISTORY: Gout with left hand pain FINDINGS: 3 views of the hand shows no evidence of acute fracture or dislocation. Degenerative change s are seen along the radial aspect of the wrist with erosions seen in the distal radius, scaphoid and trapezium. Radial soft tissue swelling is present. IMPRESSION: Erosions along the radial aspect of the wrist may be secondary to gout.
== END 2019-03-11 11:28 | disposition home or self-care (01) ==
LOC: NAV RAD 11:27
PROVIDERS: ATTEND Internal Medicine
DX: M11.242 Other chondrocalcinosis, left hand (principal)

== ENCOUNTER 2022-05-05 19:03 | Emergency (ER) | payer MEDICARE, OTHER | END 2022-05-05 20:07 | disposition home or self-care (01) | LOC: NAV ERS 19:03 | DX: J06.9 Acute upper respiratory infection, unspecified (principal); I10 Essential (primary) hypertension; E78.5 Hyperlipidemia, unspecified | CPT/HCPCS: 87081; 87430; 99283; U0003; U0005 ==

== ENCOUNTER 2023-10-02 06:51 | Emergency (ER) | payer MEDICARE, OTHER ==
[2023-10-02] MEDS ORDERED: predniSONE 20 MG TAB ONE (07:42)
== END 2023-10-02 08:25 | disposition home or self-care (01) ==
LOC: NAV ERS 06:51
DX: M19.012 Primary osteoarthritis, left shoulder (principal); E78.5 Hyperlipidemia, unspecified; I10 Essential (primary) hypertension; Z79.899 Other long term (current) drug therapy
CPT/HCPCS: J7512